=== PATIENT | female | born 2005 | race Caucasian/White ===

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

== ENCOUNTER 2025-05-08 11:25 | Outpatient (AMB) | payer OTHER, SELFPAY ==
--- NOTE | 2025-05-08 11:34 | MHC.PC.OV ---
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. She was previously seen at [facility]. She reports no chronic medical conditions or allergies. The patient reports issues with recurrent pharyngitis, noting she gets strep throat frequently and recently had cobblestone throat. She describes the pain as being in the back of her throat rather than her tonsils and feels it is a recurring issue, which she sometimes associates with attending concerts. She also experiences a persistent runny nose and postnasal drip, requiring her to blow her nose frequently, particularly after eating or brushing her teeth. Regarding her gastrointestinal health, the patient reports being constipated most of the time, with bowel movements occurring once a day on good weeks but sometimes skipping several days. She uses Dulcolax occasionally and notes certain foods like popcorn and cheese can trigger constipation. She has recently started using a large water bottle to improve her hydration, which she feels has helped. In terms of social history, she vapes nicotine, which she started about a year ago, and describes her use as frequent. She also uses marijuana two to three times per day. For gynecological history, her periods are regular and not problematic. She previously experienced recurrent yeast infections, which she believes were related to an ex-boyfriend and have since resolved. She tried control pills when she was younger but stopped due to adverse effects and is not interested in hormonal methods again. She is not currently sexually active but would use condoms for contraception. Medical History: - Recurrent pharyngitis, including strep throat and cobblestone throat - Chronic constipation - History of recurrent yeast infections - History of adverse reaction to hormonal control Medications: - Dulcolax as needed for constipation Health Maintenance Basic lab work was ordered to screen for anemia, cholesterol, and glucose levels. The patient was informed about communication regarding lab results; a letter for normal results and a phone call for abnormal ones. She was advised that Pap smears for cervical cancer screening start at age 21 and a referral to a chief juvenile probation officer can be arranged then. A follow-up visit is scheduled for six months, with instructions to call sooner if needed. Social History - Tobacco Use: Vapes nicotine, which she started about a year ago, with frequent daily use. - Substance Use: Smokes marijuana two to three times per day. - Sexual History: Currently not sexually active but has a boyfriend. - Contraception: Prefers to use condoms for contraception and has a history of adverse effects from hormonal control. Patient was informed and verbally consented to the use of an ambient scribe for clinic note documentation during this visit. [facility] Medical History (Updated 05/08/25 @ 12:36 by WHITLEY Barber) Allergic rhinitis Constipation Health care maintenance No known health problems Family History (Updated 05/08/25 @ 11:44 by Sanjuana Brewer MA) Mother No problems noted. Father No problems noted. Social History Housing: House Alcohol intake: never Patient Tobacco Use Status: Current everyday Tobacco user e-Cigarette/Vaping Use: Currently Using (sometimes) Substance Use Type: Marijuana service: No Current occupational status: employed Cognitive needs: No Hearing needs: No Vision needs: No Questionnaire PHQ-9 Over the last 2 weeks, how often have you been bothered by any of the following problems? 1. Little interest or pleasure in doing things: not at all 2. Feeling down, depressed, or hopeless: not at all 3. Trouble falling or staying asleep, or sleeping too much: not at all 4. Feeling tired or having little energy: not at all 5. Poor appetite or overeating: not at all 6. Feeling bad about yourself - or that you are a failure or have let yourself or your family down: not at all 7. Trouble concentrating on things, such as reading the newspaper or watching television: not at all 8. Moving or speaking so slowly that other people could have noticed. Or the opposite - being so fidgety or restless that you have been moving around a lot more than usual: not at all 9. Thoughts that you would be better off or of hurting yourself in some way: not at all Total score: 0 Depression Screening Interpretation: Negative Depression Screening Done: Yes Source: Developed by Drs. Brandon Garduno, Annette Ambrose, Chapin Skinner and colleagues, with an educational alejandro from [employer] ([employer]). Thrive Questionnaire Date Thrive assessed: 05/08/25 I am a: Patient Within the past 12 months, did the food you bought not last and you didn't have the money to get more?: Never true Within the past 12 months, did you worry whether your food would run out before you got money to buy more?: Never true Do you have trouble paying for medicines?: No Do you have trouble getting transportation to medical appointments?: No Do you have trouble paying your heating and electricity bill?: No Do you have trouble taking care of your child, family member or friend?: No Do you have trouble with day-to-day activities such as bathing, preparing meals, shopping, managing finances, etc.?: No Are you currently unemployed and looking for a job?: No Are you interested in more education?: No THRIVE Score: 0 AUDIT C Alcohol Use Questionnaire (AUDIT-C) 1. How often do you have a drink containing alcohol?: Never 3. How often do you have six or more drinks on one occasion?: Never Total Score: 0 ELIZABETH-7 AMB Questionnaire ELIZABETH-7 Date ELIZABETH - 7 assessed: 05/08/25 Feeling nervous, anxious, or on edge: 0 = Not at all Not being able to stop or control worryin = Not at all Worrying too much about different things: 0 = Not at all Trouble relaxin = Not at all Being so restless that it is hard to sit still: 0 = Not at all Becoming easily annoyed or irritable: 0 = Not at all Feeling afraid as if something awful might happen: 0 = Not at all Total ELIZABETH-7 score (0-4 normal; 5-9 mild; 10-14 moderate; 15-21 severe): 0 Source: Developed by Drs. Brandon Garduno, Annette Ambrose, Chapin Skinner and colleagues, with an educational alejandro from [employer] Review of Systems Narrative Review of Systems - General: Denies fever. Reports getting sick frequently with strep. - HEENT: Reports recurrent sore throat, bumpy sensation in the back of the throat, runny nose, and postnasal drip. Denies problems with hearing or vision. - Cardiovascular: Denies chest pain. - Respiratory: Denies shortness of breath and cough. - Gastrointestinal: Reports constipation. Denies diarrhea and heartburn. - Genitourinary: Reports history of recurrent yeast infections, which have resolved. Reports regular menses. - Musculoskeletal: Denies back pain and joint pains. Physical exam (Primary Care) Vital Signs: Last Vital Signs Temp 98.3 F 05/08/25 11:36 Pulse 88 05/08/25 11:36 BP 120/74 05/08/25 11:36 Pulse Ox 99 05/08/25 11:36 Oxygen Delivery Method Room Air 05/08/25 11:36 BMI result Body Mass Index 18.9 GENERAL Well developed, Well nourished, in no apparent distress HEENT Head-Normocephalic Eyes- PERRLA, EOMI, Conjuctiva clear, lids WNL Ears- Canals clear, TMs WNL Mouth/Throat-No lesions, erythema, no exudate, post nasal drip Neck- Supple, No lymphadenopathy, thyroid WNL RESPIRATORY Normal I:E, Clear to auscultation CARDIOVASCULAR Regular, rate and rhythm, No murmurs or rubs GASTROINTESTINAL Soft, nontender, normal bowel sounds, no masses MUSCULOSKELETAL Back- nontender Joints- no swelling or deformity NEUROLOGICAL Gait normal PSYCHIATRIC Oriented to person, place and time Mood and affect WNL Appearance WNL Speech WNL Thought processes WNL Tobacco/Smoking Status: Tobacco use Status Tobacco use date assessed 05/08/25 05/08/25 11:45 Patient Tobacco Use Status Current everyday Tobacco 05/08/25 11:45 e-Cigarette/Vaping Use Currently Using (sometimes) 05/08/25 11:45 PHQ-9: PHQ-9 Score PHQ-9: Total score 0 05/08/25 11:45 Depression Screening Interpretation: Negative Thrive Assessment: Date of Thrive Assessment Date Thrive assessed 05/08/25 05/08/25 11:45 Narrative Physical Exam - Oropharynx: Evidence of postnasal drip. Posterior tongue appears bumpy and irritated. - Lungs: Auscultation performed. Coding Level of Care Code New Pt Tele New Pt Level 4 (17500) New Pt Add On Problem Visit Only Patient Type New Diagnoses Allergic rhinitis J30.9 Constipation K59.00 Health care maintenance Z00.00 Time Spent (min) 30 Comment Time spent on H&P, Patient education and orders Assessment & Plan Assessment & Plan (1) Allergic rhinitis: Code(s): J30.9 - Allergic rhinitis, unspecified Category: Medical Plan: Will watch for now. Patient to follow up as needed if symptoms persist or worsen. (2) Constipation: Code(s): K59.00 - Constipation, unspecified Category: Medical Plan: Will watch for now. Patient encouraged to increase water. Patient to follow up as needed if symptoms persist or worsen. (3) Health care maintenance: Code(s): Z00.00 - Encounter for general adult medical examination without abnormal findings Category: Medical Plan: Will get labs Plan Plan Patient was informed and verbally consented to the use of an ambient scribe for clinic note documentation during this visit. 1. Allergic Rhinitis With Postnasal Drip The patient's recurrent sore throat and bumpy sensation are likely due to irritation from postnasal drainage. The patient declined medication at this time as her symptoms are not currently bothersome. She was advised to monitor her symptoms and to follow up if they worsen or if she has difficulty swallowing. 2. Chronic Constipation The patient was counseled on the importance of adequate water intake to manage her constipation. She was encouraged to continue using Dulcolax as needed and to follow up if it becomes a more persistent issue. Discussion Notes I discussed with the patient that her recurrent sore throat and the bumpy appearance in the back of her throat are likely from irritation caused by postnasal drip. We discussed trying medication for allergic rhinitis, but she declined as symptoms are currently manageable, and she prefers to avoid medication. I advised her to monitor her throat symptoms and to return if they worsen or cause difficulty swallowing. Regarding her constipation, I emphasized the importance of adequate water intake and encouraged her to continue using [id number] remedies like Dulcolax as needed. We agreed to address it further if it becomes a chronic issue. I recommended baseline lab work to check her blood counts, cholesterol, and sugar, and explained the process for follow-up on the results. We scheduled a follow-up appointment in six months for a general check-in but agreed she should call sooner if any issues arise. I also informed her that cervical cancer screening with a Pap smear will begin when she turns 21. Patient Instructions - Go to the lab across the read to have your blood drawn today for routine screening tests. - If your lab results are normal, you will receive a letter in the mail. If there are any concerns, you will receive a phone call. - Keep track of your throat symptoms. If they get worse, cause you a lot of trouble, or make it hard to swallow, please call the office to let us know. - To help with constipation, make sure you are drinking plenty of water. You can use [id number] medicine like Dulcolax if you need it. If constipation becomes a regular problem, please let us know. - Schedule your follow-up appointment for six months from now at the [facility]. - Call the office to be seen sooner than six months if you feel you need to. Orders: Orders Complete Blood Count no Diff Today Z00.00 - Encounter for general adult medical examination without abnormal findings TSH reflex Free T4 Today Z00.00 - Encounter for general adult medical examination without abnormal findings Vitamin D 25-OH Total Today Z00.00 - Encounter for general adult medical examination without abnormal findings Comprehensive Met. Panel Today Z00.00 - Encounter for general adult medical examination without abnormal findings, Z13.1 - Encounter for screening for diabetes mellitus Lipid Panel Today Z13.220 - Encounter for screening for lipoid disorders Medications: Discontinued ondansetron HCl (Zofran) Discontinued Reason: Patient no longer taking 4 mg PO BEDTIME PRN 4 tabs 0RF nausea and vomiting lorazepam (Ativan) Discontinued Reason: Patient no longer taking 0.5 mg PO BID PRN 14 tabs 0RF anxiety
[2025-05-08 11:36] VITALS: BP 120/74; PULSE 88; TEMP 36.8; O2SAT 99; BMI 18.9
== END 2025-05-08 12:06 | disposition home or self-care (01) ==
LOC: HO.HMCHD 11:26
PROVIDERS: PCP Pediatrics; Visit Provider Physician Assistant Medical
DX: J30.9 Allergic rhinitis, unspecified (principal); K59.00 Constipation, unspecified; Z00.00 Encounter for general adult medical examination without abnormal findings